=== PATIENT | female | born 2000 | race Two or more races ===

== ENCOUNTER 2023-03-08 13:02 | Emergency (ER) | payer MEDICAID, OTHER ==
[~2023-03-08] VITALS: Ht 154.9 cm; Wt 65.9 kg
[2023-03-08 15:30] VITALS: BP 111/64; PULSE 74; RESP 18; TEMP 97.6; O2SAT 99
== END 2023-03-08 16:43 | disposition home or self-care (01) ==
LOC: ER 13:02
DX: S93.491A Sprain of other ligament of right ankle, initial encounter (principal); W18.49XA Other slipping, tripping and stumbling without falling, initial encounter; Y93.89 Activity, other specified; Y92.89 Other specified places as the place of occurrence of the external cause; Y99.8 Other external cause status
CPT/HCPCS: 73600